=== PATIENT | female | born 1950 | race Caucasian/White ===

== ENCOUNTER 2020-05-07 14:48 | Inpatient (IN) | payer MEDICARE, MEDICAID ==
[~2020-05-07] VITALS: Ht 152.4 cm; Wt 58.1 kg
[2020-05-07 16:48] LABS: BASOPHILS % 0.4 % (0.0-2.0); EOSINOPHILS % 1.1 % (0.0-5.0); HEMOGLOBIN. 12.7 g/dL (12.0-16.0); LYMPHOCYTES % 15.4 % (20.0-50.0); MEAN CORPUSCULAR HEMOGLOBIN 32.3 pg (28.0-32.0); MEAN CORPUSCULAR VOLUME 96.5 fL (81.0-99.0); MEAN PLATELET VOLUME 8.4 fl (7.4-10.4); MONOCYTES % 6.7 % (2.0-8.0); NEUTROPHILS % 76.4 % (40.0-76.0); PLATELET 170 x1000/uL (130-400); RED BLOOD CELL COUNT 3.93 mill/uL (4.2-5.4)
[2020-05-07 16:57] LABS: PARTIAL THROMBOPLASTIN TIME 29.8 sec (23.4-31.0); PROTHROMBIN TIME 10.9 sec (9.6-11.0)
[2020-05-07 17:03] LABS: CHLORIDE 109 mEq/L (98-107)
[2020-05-07 17:06] LABS: BG BASE EXCESS -1.5 mmol/L (-2.0-2.0); BG CARBOXYHEMOGLOBIN 1.6 % (0.5-1.5); BG DEOXYHEMOGLOBIN 4.1 % (0.0-5.0); BG FRACTION INSPIRED OXYGEN 21; BG HCO3 ACT 22.8 mmol/L (22.0-26.0); BG METHEMOGLOBIN 0.1 % (0.0-1.5); BG OXYGEN SATURATION 95.8 % (92.0-98.5); BG OXYHEMOGLOBIN 94.2 % (94.0-97.0); BG PCO2 37.3 mmHg (35.0-45.0); BG PH 7.405 (7.350-7.450); BG PO2 82.7 mmHg (75.0-100.0); BG SAMPLE SITE RIGHT RADIAL; BG TOTAL HEMOGLOBIN 12.8 g/dL (12.0-18.0); BG VENT MODE ROOM AIR
[2020-05-07 17:07] LABS: ETHANOL BLOOD < 10 mg/dL
[2020-05-07 17:12] LABS: CREATINE KINASE 54 IU/L (26-192)
[2020-05-07] MEDS ORDERED: NITROGLYCERIN OINT 1GM/INCH UDPKT TD ONE (17:30)
[2020-05-07] MEDS ORDERED: FUROSEMIDE 40MG/4ML VIAL IVP ONE (17:30)
[2020-05-07] MEDS ORDERED: ASPIRIN 81MG TABLET PO ONE (17:30)
[2020-05-07 18:40] LABS: CLARITY URINE CLEAR (CLEAR); COLOR URINE YELLOW (YELLOW); KETONES URINE NEGATIVE (NEGATIVE); LEUKOCYTE ESTERASE URINE 1+ (NEGATIVE); NITRITE URINE NEGATIVE (NEGATIVE); OCCULT BLOOD URINE NEGATIVE (NEGATIVE); PROTEIN URINE NEGATIVE (NEGATIVE); SPECIFIC GRAVITY URINE 1.016 (1.005-1.030); UROBILINOGEN URINE 0.2 E.U./dL (0.2-1.0)
[2020-05-07 19:04] LABS: *AMPHETAMINES SCREEN URINE NEGATIVE (NEGATIVE); *BARBITURATES SCREEN URINE NEGATIVE (NEGATIVE); *BENZODIAZEPINES SCREEN URINE NEGATIVE (NEGATIVE)
[2020-05-07 19:05] LABS: *COCAINE SCREEN URINE NEGATIVE (NEGATIVE); CANNABINOID URINE SCREEN NEGATIVE (NEGATIVE); METHADONE URINE SCREEN NEGATIVE (NEGATIVE); OPIATES URINE SCREEN NEGATIVE (NEGATIVE); PHENCYCLIDINE URINE SCREEN NEGATIVE (NEGATIVE)
[2020-05-07] MEDS ORDERED: ACETAMINOPHEN 325MG TABLET PO PRN (21:45)
[2020-05-07] MEDS: AMLODIPINE 10MG TABLET PO SCH (21:45)
[2020-05-07] MEDS ORDERED: DEXTROSE 50% WATER 50ML SYRINGE IV PRN (21:45)
[2020-05-07] MEDS ORDERED: ONDANSETRON HCL 4MG/2ML INJ IV PRN (21:45)
[2020-05-07] MEDS: INSULIN LISPRO 100 UNITS/ML SUBCUT SCH (22:00)
[2020-05-07] MEDS: BLOOD SUGAR DIAGNOSTIC STRIP TEST SCH (22:49)
[2020-05-08 05:30] VITALS: BP 131/40
[2020-05-08] MEDS: BLOOD SUGAR DIAGNOSTIC STRIP TEST SCH ×4 (05:38→21:00)
[2020-05-08] MEDS: INSULIN LISPRO 100 UNITS/ML SUBCUT SCH ×4 (05:38→21:00)
[2020-05-08 07:57] VITALS: BP 122/36
[2020-05-08] MEDS: AMLODIPINE 10MG TABLET PO SCH (08:58)
[2020-05-08 11:44] VITALS: BP 132/36
[2020-05-08] MEDS ORDERED: INSULIN GLARGINE UD 100 UNITS/ML SYR SUBCUT SCH (14:00)
[2020-05-08 15:26] VITALS: BP 145/50
[2020-05-08 16:11] LABS: BASOPHILS % 0.8 % (0.0-2.0); EOSINOPHILS % 2.8 % (0.0-5.0); HEMATOCRIT. 39.3 % (36.0-48.0); HEMOGLOBIN. 13.4 g/dL (12.0-16.0); LYMPHOCYTES % 35.7 % (20.0-50.0); MEAN CORPUSCULAR HEMOGLOBIN 32.6 pg (28.0-32.0); MEAN CORPUSCULAR VOLUME 95.8 fL (81.0-99.0); MEAN PLATELET VOLUME 8.5 fl (7.4-10.4); MONOCYTES % 9.2 % (2.0-8.0); NEUTROPHILS % 51.5 % (40.0-76.0); PLATELET 180 x1000/uL (130-400); RED CELL DISTRIBUTION WIDTH 12.7 % (11.6-14.6)
[2020-05-08 16:16] LABS: CHLORIDE 105 mEq/L (98-107)
[2020-05-08] MEDS: FUROSEMIDE 40MG/4ML VIAL IVP SCH (18:33)
[2020-05-08 20:00] VITALS: BP 138/60
[2020-05-08] MEDS: INSULIN GLARGINE UD 100 UNITS/ML SYR SUBCUT SCH (22:00)
[2020-05-09] VITALS: BP 112/52
[2020-05-09 04:00] VITALS: BP 151/53
[2020-05-09] MEDS: BLOOD SUGAR DIAGNOSTIC STRIP TEST SCH ×2 (06:11→12:20)
[2020-05-09 08:00] VITALS: BP 162/60
[2020-05-09] MEDS: AMLODIPINE 10MG TABLET PO SCH (09:09)
[2020-05-09] MEDS: FUROSEMIDE 40MG/4ML VIAL IVP SCH (09:09)
[2020-05-09] MEDS: INSULIN LISPRO 100 UNITS/ML SUBCUT SCH (09:10)
[2020-05-09] MEDS: INSULIN GLARGINE UD 100 UNITS/ML SYR SUBCUT SCH (10:05)
[2020-05-09] MEDS ORDERED: ASPIRIN 81MG TABLET PO SCH (12:00)
[2020-05-09] MEDS ORDERED: AMLO10TA80 MT (13:12)
[2020-05-09 17:19] VITALS: BP 145/62
[2020-05-09] MEDS ORDERED: ATORVASTATIN CALCIUM 10MG TABLET PO SCH (21:00)
== END 2020-05-09 18:24 | disposition home or self-care (01) | DRG 73 ==
LOC: ER 15:32 → MICUSO 19:37 → 6WST 05-08 03:45
PROVIDERS: ADMIT Internal Medicine; ATTEND Internal Medicine
DX: G90.8 Other disorders of autonomic nervous system (principal); J18.9 Pneumonia, unspecified organism; I50.43 Acute on chronic combined systolic (congestive) and diastolic (congestive) heart failure; E44.1 Mild protein-calorie malnutrition; E11.65 Type 2 diabetes mellitus with hyperglycemia; I11.0 Hypertensive heart disease with heart failure; E87.8 Other disorders of electrolyte and fluid balance, not elsewhere classified; I27.20 Pulmonary hypertension, unspecified; I08.1 Rheumatic disorders of both mitral and tricuspid valves; Z82.49 Family history of ischemic heart disease and other diseases of the circulatory system; Z68.25 Body mass index [BMI] 25.0-25.9, adult; Z79.899 Other long term (current) drug therapy; E78.5 Hyperlipidemia, unspecified
CPT/HCPCS: 36415; 36600; 71045; 80048; 80053; 80061; 80305; 80320; 81003; 82375; 82550; 82805; 82962; 83036; 83605; 83880; 84443; 84484; 85025; 93005; 93306; 93880; 96374; 97161; 99285; J1815; J1940; G0480

== ENCOUNTER 2024-05-08 05:19 | Inpatient (IN) | payer MEDICARE, MEDICAID ==
[~2024-05-08] VITALS: Ht 157.5 cm; Wt 52.3 kg
[~2024-05-08 05:19] MED LIST: AMLO10TA80 MT
[2024-05-08 06:14] LABS: POTASSIUM 4.8 mEq/L (3.5-5.1)
[2024-05-08 06:15] LABS: BASOPHILS % 0.8 % (0.0-2.0); DIFFERENTIAL COMMENT 0; EOSINOPHILS % 1.7 % (0.0-5.0); HEMATOCRIT. 41.6 % (36.0-48.0); HEMOGLOBIN. 13.5 g/dL (12.0-16.0); LYMPHOCYTES % 11.4 % (20.0-50.0); MEAN CORPUSCULAR HEMOGLOBIN 33.9 pg (28.0-32.0); MEAN CORPUSCULAR HGB CONC 32.6 g/dL (31.0-37.0); MEAN CORPUSCULAR VOLUME 104.1 fL (81.0-99.0); MEAN PLATELET VOLUME 9.5 fl (7.4-10.4); MONOCYTES % 7.9 % (2.0-8.0); NEUTROPHILS % 78.2 % (40.0-76.0); PLATELET 162 x1000/uL (130-400); RED CELL DISTRIBUTION WIDTH 17.3 % (11.6-14.6); WHITE BLOOD COUNT 8.7 x1000/uL (4.5-11.0)
[2024-05-08 07:08] LABS: CLARITY URINE CLEAR (CLEAR); COLOR URINE YELLOW (YELLOW); GLUCOSE URINE 2+ (NEGATIVE); PROTEIN URINE TRACE (NEGATIVE); SPECIFIC GRAVITY URINE 1.025 (1.005-1.030)
[2024-05-08 07:09] LABS: KETONES URINE TRACE (NEGATIVE); LEUKOCYTE ESTERASE URINE NEGATIVE (NEGATIVE); NITRITE URINE NEGATIVE (NEGATIVE); OCCULT BLOOD URINE NEGATIVE (NEGATIVE); UROBILINOGEN URINE 0.2 E.U./dL (0.2-1.0)
[2024-05-08 07:18] LABS: BACTERIA URINE 2+; SQUAMOUS EPITHELIAL CELL URINE 2+ /lpf (RARE/1+); YEAST URINE NONE SEEN
[2024-05-08 07:27] LABS: CHLORIDE 110 mEq/L (98-107); POTASSIUM 4.6 mEq/L (3.5-5.1); SODIUM 139 mEq/L (136-145)
[2024-05-08 07:28] LABS: CALCIUM 8.7 mg/dL (8.7-10.4); CARBON DIOXIDE 23 mEq/L (21-32)
[2024-05-08 07:33] LABS: GLUCOSE 161 mg/dL (70-105); UREA NITROGEN BLOOD 36 mg/dL (9-23)
[2024-05-08 07:34] LABS: TROPONIN I HIGH SENSITIVITY 18 ng/L (3.0-34)
[2024-05-08] MEDS: ONDANSETRON HCL 4MG/2ML INJ IV STA (07:35)
[2024-05-08] MEDS: MORPHINE SULFATE 4 MG/ML INJ (FOR IV/IM USE) IV STA (07:36)
[2024-05-08] MEDS: SODIUM CHLORIDE 0.9% 1,000 ML IV ONE ×2 (07:36→12:39)
[2024-05-08 08:54] LABS: TROPONIN I HIGH SENSITIVITY 18 ng/L (3.0-34)
[2024-05-08] MEDS: METRONIDAZOLE 500 MG PREMIX 100 ML IV ONE (09:20)
[2024-05-08] MEDS: CEFTRIAXONE 1GM/50ML 50 ML IV ONE (09:47)
[2024-05-08] MEDS: AZITHROMYCIN 250 MG in DEXT 5% WATER 250 ML IV SCH (10:37)
[2024-05-08 11:11] VITALS: PULSE 123; RESP 20; O2SAT 100
[2024-05-08] MEDS: ONDANSETRON HCL 4MG/2ML INJ IV ONE (11:19)
[2024-05-08] MEDS ORDERED: ACETAMINOPHEN 650MG/20.3ML UDC NG PRN (12:15)
[2024-05-08] MEDS ORDERED: ACETAMINOPHEN 650MG SUPP PR PRN (12:15)
[2024-05-08 12:28] VITALS: PULSE 111; RESP 22; O2SAT 93
[2024-05-08] MEDS: PROPOFOL 10MG/ML 100ML 100 ML IV SCH (12:39)
[2024-05-08] MEDS: SODIUM CHLORIDE 0.9% (SEPSIS BOLUS) IV ONE (12:39)
[2024-05-08 13:52] LABS: HEMATOCRIT. 41.5 % (36.0-48.0); HEMOGLOBIN. 12.2 g/dL (12.0-16.0); MEAN CORPUSCULAR HEMOGLOBIN 33.3 pg (28.0-32.0); MEAN CORPUSCULAR HGB CONC 29.3 g/dL (31.0-37.0); MEAN CORPUSCULAR VOLUME 113.5 fL (81.0-99.0); MEAN PLATELET VOLUME 9.1 fl (7.4-10.4); PLATELET 112 x1000/uL (130-400); RED BLOOD CELL COUNT 3.65 mill/uL (4.2-5.4); WHITE BLOOD COUNT 19.4 x1000/uL (4.5-11.0)
[2024-05-08 13:59] LABS: CHLORIDE 114 mEq/L (98-107); POTASSIUM 4.6 mEq/L (3.5-5.1); SODIUM 137 mEq/L (136-145)
[2024-05-08 14:00] LABS: CALCIUM 7.8 mg/dL (8.7-10.4); CARBON DIOXIDE 16 mEq/L (21-32)
[2024-05-08 14:05] LABS: GLUCOSE 244 mg/dL (70-105); UREA NITROGEN BLOOD 29 mg/dL (9-23)
[2024-05-08 14:06] LABS: DIFFERENTIAL COMMENT 1
[2024-05-08 14:07] LABS: PHOSPHORUS 4.4 mg/dL (2.5-4.9)
[2024-05-08 14:17] VITALS: PULSE 118; RESP 20; O2SAT 99
[2024-05-08] MEDS ORDERED: DEXTROSE 50% WATER 50ML SYRINGE IV PRN (14:45)
[2024-05-08 15:15] LABS: ANISOCYTOSIS 1+; PLATELET ESTIMATE SLIGHTLY DECREASED
[2024-05-08 15:51] LABS: BG BASE EXCESS -6.6 mmol/L (-2.0-3.0); BG CARBOXYHEMOGLOBIN 0.9 % (0.5-1.5); BG DEOXYHEMOGLOBIN 1.2 % (0.0-5.0); BG FRACTION INSPIRED OXYGEN 100; BG HCO3 ACT 17.1 mmol/L (21.0-28.0); BG METHEMOGLOBIN 0.3 % (0.5-1.5); BG OXYGEN SATURATION 98.8 % (94.0-98.0); BG OXYHEMOGLOBIN 97.6 % (94.0-98.0); BG PCO2 29.2 mmHg (32.0-45.0); BG PH 7.385 (7.350-7.450); BG PO2 127.6 mmHg (83.0-108.0); BG SAMPLE SITE RIGHT RADIAL; BG TOTAL HEMOGLOBIN 13.8 g/dL (12.0-16.0); BG VENT MODE VENT - PRVC
[2024-05-08] MEDS: VANCOMYCIN 1G PREMIX 200 ML IV NR (16:53)
[2024-05-08] MEDS: NOREPINEPHRINE 8MG/250ML PMX 250 ML IV PRN (18:17)
[2024-05-08] MEDS: BLOOD SUGAR DIAGNOSTIC STRIP TEST SCH (18:52)
[2024-05-08] MEDS: INSULIN LISPRO 100 UNITS/ML SUBCUT SCH (18:56)
[2024-05-08 19:22] VITALS: PULSE 114; O2SAT 100
[2024-05-08 19:55] VITALS: PULSE 92; RESP 23; O2SAT 98
[2024-05-09] VITALS (58 sets, daily range): BP systolic 106–164; BP diastolic 42–67; PULSE 62–86; RESP 16–23; TEMP 37; O2SAT 97–100
[2024-05-09] MEDS: VANCOMYCIN 500MG/100ML IV SCH (05:24)
[2024-05-09] MEDS: IPRATROPIUM/ALBUTEROL 0.5-3(2.5)MG/3ML NEB HHN SCH (07:52)
[2024-05-09 08:19] LABS: BG BASE EXCESS -8.3 mmol/L (-2.0-3.0); BG CARBOXYHEMOGLOBIN 0.6 % (0.5-1.5); BG DEOXYHEMOGLOBIN 1.5 % (0.0-5.0); BG FRACTION INSPIRED OXYGEN 70; BG HCO3 ACT 14.6 mmol/L (21.0-28.0); BG METHEMOGLOBIN 0.2 % (0.5-1.5); BG OXYGEN SATURATION 98.5 % (94.0-98.0); BG OXYHEMOGLOBIN 97.7 % (94.0-98.0); BG PCO2 24.4 mmHg (32.0-45.0); BG PH 7.395 (7.350-7.450); BG PO2 117.1 mmHg (83.0-108.0); BG SAMPLE SITE LEFT RADIAL; BG TOTAL HEMOGLOBIN 14.2 g/dL (12.0-16.0); BG TOTAL RESPIRATORY RATE 20 b/min
[2024-05-09 08:21] LABS: BASOPHILS % 0.5 % (0.0-2.0); DIFFERENTIAL COMMENT 0; EOSINOPHILS % 0.8 % (0.0-5.0); HEMATOCRIT. 41.7 % (36.0-48.0); HEMOGLOBIN. 13.4 g/dL (12.0-16.0); LYMPHOCYTES % 11.5 % (20.0-50.0); MEAN CORPUSCULAR HEMOGLOBIN 33.4 pg (28.0-32.0); MEAN CORPUSCULAR HGB CONC 32.1 g/dL (31.0-37.0); MEAN CORPUSCULAR VOLUME 103.8 fL (81.0-99.0); MEAN PLATELET VOLUME 9.5 fl (7.4-10.4); MONOCYTES % 9.9 % (2.0-8.0); NEUTROPHILS % 77.3 % (40.0-76.0); PLATELET 154 x1000/uL (130-400); RED BLOOD CELL COUNT 4.01 mill/uL (4.2-5.4); RED CELL DISTRIBUTION WIDTH 17.1 % (11.6-14.6); WHITE BLOOD COUNT 11.3 x1000/uL (4.5-11.0)
[2024-05-09 08:28] LABS: CHLORIDE 114 mEq/L (98-107); POTASSIUM 4.1 mEq/L (3.5-5.1); SODIUM 140 mEq/L (136-145)
[2024-05-09 08:29] LABS: CALCIUM 8.1 mg/dL (8.7-10.4); CARBON DIOXIDE 19 mEq/L (21-32)
[2024-05-09 08:34] LABS: GLUCOSE 179 mg/dL (70-105); TRIGLYCERIDE 109 mg/dL (0-150); UREA NITROGEN BLOOD 34 mg/dL (9-23)
[2024-05-09 08:35] LABS: LDL CHOLESTEROL 43 mg/dL (5-100)
[2024-05-09 08:36] LABS: ALANINE AMINOTRANSFERASE 57 IU/L (10-49); ALBUMIN 2.9 g/dL (3.2-4.8); ASPARTATE AMINOTRANSFERASE 48 IU/L (<34); BILIRUBIN DIRECT 0.3 mg/dL (<=3.0); BILIRUBIN TOTAL 0.7 mg/dL (0.1-1.0); CHOLESTEROL 88 mg/dL (<200); HDL CHOLESTEROL 26 mg/dL (>65); PROTEIN TOTAL 5.6 g/dL (6.0-8.3)
[2024-05-09] MEDS ORDERED: CEFEPIME 1GM IN DEXT 5% 50ML IV SCH (08:45)
[2024-05-09] MEDS ORDERED: CLONIDINE 0.1MG TABLET PO PRN (09:15)
[2024-05-09] MEDS ORDERED: DOCUSATE SODIUM 100MG CAPSULE PO PRN (09:15)
[2024-05-09] MEDS: PANTOPRAZOLE SODIUM 40 MG/VIAL IV SCH (09:17)
[2024-05-09] MEDS: ENOXAPARIN 60MG/0.6ML SYR SUBCUT NR (09:17)
[2024-05-09] MEDS ORDERED: CEFEPIME 1GM PREMIX 50ML IV SCH (10:00)
[2024-05-09 10:01] LABS: ALBUMIN 3.1 g/dL (3.2-4.8)
[2024-05-09 10:04] LABS: THYROID STIMULATING HORMONE 1.8 uIU/mL (0.55-4.78)
[2024-05-09 10:11] LABS: INR 1.1; PROTHROMBIN TIME 12.1 sec (9.6-11.0)
[2024-05-09 11:50] LABS: HEPATITIS B SURFACE ANTIGEN NEGATIVE (Negative)
[2024-05-09 12:10] LABS: HEPATITIS A AB IGM NEGATIVE (Negative)
[2024-05-09 12:11] LABS: HEPATITIS B CORE AB IGM NEGATIVE (Negative); HEPATITIS C AB NON REACTIVE (Neg) (Negative)
[2024-05-09] MEDS: CEFEPIME 2GM/50ML DUPLEX 50 ML IV SCH ×2 (15:12→22:27)
[2024-05-09] MEDS ORDERED: VANCOMYCIN 500MG/100ML IV SCH ×2 (21:00)
[2024-05-09] MEDS: ENOXAPARIN 60MG/0.6ML SYR SUBCUT SCH (22:29)
[2024-05-10] VITALS (109 sets, daily range): BP systolic 86–145; BP diastolic 38–70; PULSE 62–117; RESP 11–27; TEMP 98.1–100; O2SAT 94–100
[2024-05-10] MEDS: PROPOFOL 10 MG/ML 100 ML IV PRN (02:41)
[2024-05-10 05:02] LABS: BASOPHILS % 0.5 % (0.0-2.0); DIFFERENTIAL COMMENT 0; HEMATOCRIT. 40.5 % (36.0-48.0); HEMOGLOBIN. 12.7 g/dL (12.0-16.0); LYMPHOCYTES % 9.4 % (20.0-50.0); MEAN CORPUSCULAR HEMOGLOBIN 33.6 pg (28.0-32.0); MEAN CORPUSCULAR HGB CONC 31.5 g/dL (31.0-37.0); MEAN CORPUSCULAR VOLUME 106.6 fL (81.0-99.0); MONOCYTES % 10.8 % (2.0-8.0); NEUTROPHILS % 77.3 % (40.0-76.0); PLATELET 124 x1000/uL (130-400); RED CELL DISTRIBUTION WIDTH 19.3 % (11.6-14.6); WHITE BLOOD COUNT 10.3 x1000/uL (4.5-11.0)
[2024-05-10 05:03] LABS: CHLORIDE 114 mEq/L (98-107); POTASSIUM 3.4 mEq/L (3.5-5.1); SODIUM 143 mEq/L (136-145)
[2024-05-10 05:04] LABS: CALCIUM 8.4 mg/dL (8.7-10.4); CARBON DIOXIDE 19 mEq/L (21-32)
[2024-05-10 05:09] LABS: CREATININE 0.8 mg/dL (0.6-1.0); GLUCOSE 145 mg/dL (70-105); UREA NITROGEN BLOOD 20 mg/dL (9-23)
[2024-05-10 05:11] LABS: ALANINE AMINOTRANSFERASE 44 IU/L (10-49); ALBUMIN 2.9 g/dL (3.2-4.8); ASPARTATE AMINOTRANSFERASE 33 IU/L (<34); BILIRUBIN TOTAL 0.7 mg/dL (0.1-1.0); PROTEIN TOTAL 5.3 g/dL (6.0-8.3)
[2024-05-10] MEDS: POTASSIUM CHLORIDE 20MEQ/PACKET PO NR (05:21)
[2024-05-10] MEDS: NOREPINEPHRINE 8MG/250ML PMX 250 ML IV PRN (10:53)
[2024-05-10] MEDS: ACETAMINOPHEN 325MG TABLET PO PRN (12:46)
[2024-05-10 14:17] LABS: *AMPHETAMINES SCREEN URINE NEGATIVE (NEGATIVE); *BARBITURATES SCREEN URINE NEGATIVE (NEGATIVE); *BENZODIAZEPINES SCREEN URINE NEGATIVE (NEGATIVE); *COCAINE SCREEN URINE NEGATIVE (NEGATIVE); CANNABINOID URINE SCREEN NEGATIVE (NEGATIVE); ECSTASY MDMA SCREEN URINE NEGATIVE (NEGATIVE); METHADONE URINE SCREEN NEGATIVE (NEGATIVE); OPIATES URINE SCREEN NEGATIVE (NEGATIVE); PHENCYCLIDINE URINE SCREEN NEGATIVE (NEGATIVE)
[2024-05-10 15:22] LABS: BG BASE EXCESS -7.2 mmol/L (-2.0-3.0); BG DEOXYHEMOGLOBIN 4.8 % (0.0-5.0); BG FRACTION INSPIRED OXYGEN 40; BG HCO3 ACT 16.4 mmol/L (21.0-28.0); BG METHEMOGLOBIN 0.2 % (0.5-1.5); BG OXYGEN SATURATION 95.1 % (94.0-98.0); BG PCO2 27.9 mmHg (32.0-45.0); BG PH 7.386 (7.350-7.450); BG PO2 77.6 mmHg (83.0-108.0); BG SAMPLE SITE RIGHT RADIAL; BG TOTAL HEMOGLOBIN 12.8 g/dL (12.0-16.0); BG VENT MODE VENT - AC
[2024-05-11] VITALS (107 sets, daily range): BP systolic 90–152; BP diastolic 40–129; PULSE 70–163; RESP 11–41; TEMP 98.1–101; O2SAT 90–100
[2024-05-11 05:17] LABS: BASOPHILS % 0.8 % (0.0-2.0); DIFFERENTIAL COMMENT 0; EOSINOPHILS % 2.7 % (0.0-5.0); HEMATOCRIT. 37.4 % (36.0-48.0); MEAN CORPUSCULAR HEMOGLOBIN 33.2 pg (28.0-32.0); MEAN CORPUSCULAR HGB CONC 32.1 g/dL (31.0-37.0); MEAN CORPUSCULAR VOLUME 103.2 fL (81.0-99.0); MEAN PLATELET VOLUME 9.2 fl (7.4-10.4); MONOCYTES % 11.1 % (2.0-8.0); NEUTROPHILS % 77.4 % (40.0-76.0); PLATELET 109 x1000/uL (130-400); RED BLOOD CELL COUNT 3.62 mill/uL (4.2-5.4); RED CELL DISTRIBUTION WIDTH 17.8 % (11.6-14.6); WHITE BLOOD COUNT 8.2 x1000/uL (4.5-11.0)
[2024-05-11 05:21] LABS: PROTHROMBIN TIME 11.6 sec (9.6-11.0)
[2024-05-11 05:32] LABS: CHLORIDE 116 mEq/L (98-107); POTASSIUM 3.5 mEq/L (3.5-5.1); SODIUM 145 mEq/L (136-145)
[2024-05-11 05:33] LABS: CARBON DIOXIDE 20 mEq/L (21-32)
[2024-05-11 05:38] LABS: CREATININE 0.6 mg/dL (0.6-1.0); GLUCOSE 124 mg/dL (70-105)
[2024-05-11 05:39] LABS: UREA NITROGEN BLOOD 14 mg/dL (9-23)
[2024-05-11 05:40] LABS: ALANINE AMINOTRANSFERASE 31 IU/L (10-49); ALBUMIN 2.8 g/dL (3.2-4.8); ASPARTATE AMINOTRANSFERASE 22 IU/L (<34); BILIRUBIN DIRECT 0.2 mg/dL (<=3.0)
[2024-05-11 05:41] LABS: BILIRUBIN TOTAL 0.5 mg/dL (0.1-1.0); PHOSPHORUS 3.2 mg/dL (2.5-4.9); PROTEIN TOTAL 5.4 g/dL (6.0-8.3)
[2024-05-11] MEDS: PROPOFOL 10MG/ML 100ML 100 ML IV PRN (07:15)
[2024-05-11] MEDS: METOPROLOL TARTRATE 5MG/5ML VIAL IV SCH ×2 (12:18→13:39)
[2024-05-11] MEDS: FUROSEMIDE 40MG/4ML VIAL IVP SCH (12:21)
[2024-05-11] MEDS: KCL 20MEQ/100ML PREMIX 100 ML IV SCH (12:22)
[2024-05-11] MEDS: DILTIAZEM HCL 5MG/ML 5ML VIAL IV NR (13:48)
[2024-05-11] MEDS ORDERED: DILTIAZEM HCL 30MG TABLET PO STA (13:48)
[2024-05-11] MEDS ORDERED: DILTIAZEM HCL 5MG/ML 5ML VIAL IV ONE (14:00)
[2024-05-11] MEDS: LORAZEPAM 2MG/ML INJ IV SCH (14:04)
[2024-05-11] MEDS: SPIRONOLACTONE 12.5MG TABLET PO SCH (14:06)
[2024-05-11] MEDS: DILTIAZEM HCL 30MG TABLET PO NR (14:07)
[2024-05-11] MEDS: DILTIAZEM HCL 125 MG in DEXT 5% WATER 100 ML IV PRN (14:53)
[2024-05-11] MEDS: DILTIAZEM HCL 30MG TABLET PO SCH (17:22)
[2024-05-11] MEDS: ACETAMINOPHEN 325MG TABLET PO PRN (18:31)
[2024-05-11] MEDS: TAMSULOSIN HCL 0.4MG SR CAPSULE PO SCH (19:31)
[2024-05-12] VITALS (94 sets, daily range): BP systolic 95–143; BP diastolic 41–128; PULSE 70–126; RESP 14–27; TEMP 36.5–36.8; O2SAT 91–100
[2024-05-12 06:08] LABS: HEMATOCRIT. 36.1 % (36.0-48.0); HEMOGLOBIN. 11.8 g/dL (12.0-16.0); MEAN CORPUSCULAR HEMOGLOBIN 33.7 pg (28.0-32.0); MEAN CORPUSCULAR HGB CONC 32.7 g/dL (31.0-37.0); MEAN CORPUSCULAR VOLUME 103.1 fL (81.0-99.0); MEAN PLATELET VOLUME 9.4 fl (7.4-10.4); PLATELET 104 x1000/uL (130-400); RED CELL DISTRIBUTION WIDTH 17.5 % (11.6-14.6); WHITE BLOOD COUNT 8.4 x1000/uL (4.5-11.0)
[2024-05-12 06:24] LABS: CALCIUM 8.4 mg/dL (8.7-10.4); CARBON DIOXIDE 21 mEq/L (21-32); CHLORIDE 110 mEq/L (98-107); POTASSIUM 3.9 mEq/L (3.5-5.1); SODIUM 139 mEq/L (136-145)
[2024-05-12 06:29] LABS: CREATININE 0.6 mg/dL (0.6-1.0); GLUCOSE 174 mg/dL (70-105)
[2024-05-12 06:30] LABS: TRIGLYCERIDE 102 mg/dL (0-150); UREA NITROGEN BLOOD 15 mg/dL (9-23)
[2024-05-12 06:32] LABS: PHOSPHORUS 2.8 mg/dL (2.5-4.9)
[2024-05-12 06:38] LABS: DIFFERENTIAL COMMENT 1
[2024-05-12] MEDS: FUROSEMIDE 40MG/4ML VIAL IVP SCH ×2 (09:02→17:09)
[2024-05-12 09:12] LABS: ANISOCYTOSIS 1+; PLATELET ESTIMATE SLIGHTLY DECREASED
[2024-05-12] MEDS: DOCUSATE SODIUM SUGAR FREE 100MG/10ML UDC NG PRN (09:32)
[2024-05-12 10:29] LABS: BG BASE EXCESS -1.1 mmol/L (-2.0-3.0); BG CARBOXYHEMOGLOBIN 1.1 % (0.5-1.5); BG DEOXYHEMOGLOBIN 7.3 % (0.0-5.0); BG FRACTION INSPIRED OXYGEN 45; BG HCO3 ACT 21.4 mmol/L (21.0-28.0); BG METHEMOGLOBIN 0.3 % (0.5-1.5); BG OXYGEN SATURATION 92.6 % (94.0-98.0); BG OXYHEMOGLOBIN 91.3 % (94.0-98.0); BG PCO2 29.1 mmHg (32.0-45.0); BG PH 7.484 (7.350-7.450); BG SAMPLE SITE RIGHT RADIAL; BG TOTAL HEMOGLOBIN 12.1 g/dL (12.0-16.0); BG VENT MODE VENT - CPAP
[2024-05-12] MEDS ORDERED: ASPIRIN 81MG EC TABLET PO SCH (10:30)
[2024-05-12] MEDS: SPIRONOLACTONE 25 MG/5 ML ORAL.SUSP NG SCH (11:29)
[2024-05-12] MEDS: ASPIRIN 81MG TABLET PO SCH (11:35)
[2024-05-12] MEDS: DILTIAZEM HCL 60MG TABLET PO SCH (11:35)
[2024-05-13] VITALS (69 sets, daily range): BP systolic 102–135; BP diastolic 43–90; PULSE 67–108; RESP 15–27; TEMP 36.6–37.2; O2SAT 90–97
[2024-05-13 05:53] LABS: HEMOGLOBIN 11.5 g/dL (12.0-16.0); MEAN CORPUSCULAR HEMOGLOBIN 33.5 pg (28.0-32.0); MEAN CORPUSCULAR VOLUME 101.6 fL (81.0-99.0); PLATELET 119 x1000/uL (130-400); RED BLOOD CELL COUNT 3.44 mill/uL (4.2-5.4); RED CELL DISTRIBUTION WIDTH 17.2 % (11.6-14.6); WHITE BLOOD COUNT 7.6 x1000/uL (4.5-11.0)
[2024-05-13 05:59] LABS: CARBON DIOXIDE 26 mEq/L (21-32); CHLORIDE 103 mEq/L (98-107); POTASSIUM 3.4 mEq/L (3.5-5.1); SODIUM 138 mEq/L (136-145)
[2024-05-13 06:00] LABS: CALCIUM 8.7 mg/dL (8.7-10.4)
[2024-05-13 06:04] LABS: CREATININE 0.6 mg/dL (0.6-1.0)
[2024-05-13 06:05] LABS: GLUCOSE 163 mg/dL (70-105); UREA NITROGEN BLOOD 17 mg/dL (9-23)
[2024-05-13] MEDS ORDERED: SPIRONOLACTONE 25MG TABLET PO SCH (09:00)
[2024-05-13] MEDS: POTASSIUM CHLORIDE 20 MEQ in DEXT 5% WATER 90 ML IV NR (10:28)
[2024-05-13 10:39] LABS: BG BASE EXCESS 4.7 mmol/L (-2.0-3.0); BG CARBOXYHEMOGLOBIN 1.1 % (0.5-1.5); BG FRACTION INSPIRED OXYGEN 40; BG HCO3 ACT 27.4 mmol/L (21.0-28.0); BG METHEMOGLOBIN 0.3 % (0.5-1.5); BG OXYGEN SATURATION 95.9 % (94.0-98.0); BG OXYHEMOGLOBIN 94.6 % (94.0-98.0); BG PCO2 34.5 mmHg (32.0-45.0); BG PH 7.517 (7.350-7.450); BG PO2 72.1 mmHg (83.0-108.0); BG SAMPLE SITE RIGHT RADIAL; BG VENT MODE VENT - CPAP
[2024-05-13] MEDS: POTASSIUM CHLORIDE 20MEQ/PACKET PO NR ×2 (11:45→21:07)
[2024-05-13] MEDS: DOCUSATE SODIUM SUGAR FREE 100MG/10ML UDC NG PRN (17:08)
[2024-05-14] VITALS (43 sets, daily range): BP systolic 88–130; BP diastolic 38–92; PULSE 64–99; RESP 13–24; TEMP 36.2–36.6; O2SAT 88–97
[2024-05-14] MEDS: ONDANSETRON HCL 4MG/2ML INJ IV PRN (04:08)
[2024-05-14 09:42] LABS: CHLORIDE 101 mEq/L (98-107); POTASSIUM 3.9 mEq/L (3.5-5.1); SODIUM 138 mEq/L (136-145)
[2024-05-14 09:43] LABS: BASOPHILS % 0.8 % (0.0-2.0); CALCIUM 8.6 mg/dL (8.7-10.4); CARBON DIOXIDE 30 mEq/L (21-32); DIFFERENTIAL COMMENT 0; EOSINOPHILS % 2.8 % (0.0-5.0); HEMATOCRIT. 36.2 % (36.0-48.0); HEMOGLOBIN. 11.8 g/dL (12.0-16.0); LYMPHOCYTES % 9.2 % (20.0-50.0); MEAN CORPUSCULAR HEMOGLOBIN 33.6 pg (28.0-32.0); MEAN CORPUSCULAR HGB CONC 32.6 g/dL (31.0-37.0); MEAN CORPUSCULAR VOLUME 103.1 fL (81.0-99.0); MEAN PLATELET VOLUME 9.3 fl (7.4-10.4); MONOCYTES % 14.3 % (2.0-8.0); NEUTROPHILS % 72.9 % (40.0-76.0); PLATELET 143 x1000/uL (130-400); RED BLOOD CELL COUNT 3.51 mill/uL (4.2-5.4); WHITE BLOOD COUNT 7.1 x1000/uL (4.5-11.0)
[2024-05-14 09:44] LABS: PROTHROMBIN TIME 11.4 sec (9.6-11.0)
[2024-05-14 09:48] LABS: CREATININE 0.7 mg/dL (0.6-1.0); GLUCOSE 331 mg/dL (70-105); UREA NITROGEN BLOOD 18 mg/dL (9-23)
[2024-05-14] MEDS: PANTOPRAZOLE SODIUM 40 MG/VIAL IV SCH (11:43)
[2024-05-14 14:06] LABS: PTT 1:1 W/NORMAL PLASMA 29.7 sec
[2024-05-14 14:16] LABS: PTT RATIO 1:1 MIX/NORMAL 1.1 (0.8-1.1)
[2024-05-14] MEDS ORDERED: ENOXAPARIN 80MG/0.8ML SYR SUBCUT SCH (14:50)
[2024-05-14] MEDS: ENOXAPARIN 80MG/0.8ML SYR SUBCUT SCH (21:25)
[2024-05-15] VITALS: BP 120/53; PULSE 76; RESP 19; TEMP 36.5; O2SAT 96
[2024-05-15 04:00] VITALS: BP 121/42; PULSE 79; RESP 18; TEMP 36.4; O2SAT 94
[2024-05-15 08:00] VITALS: BP 146/58; PULSE 90; RESP 18; TEMP 35.8; O2SAT 95
[2024-05-15 08:12] LABS: CHLORIDE 100 mEq/L (98-107)
[2024-05-15 08:13] LABS: CARBON DIOXIDE 31 mEq/L (21-32); POTASSIUM 3.6 mEq/L (3.5-5.1); SODIUM 138 mEq/L (136-145)
[2024-05-15 08:14] LABS: CALCIUM 8.9 mg/dL (8.7-10.4)
[2024-05-15 08:18] LABS: CREATININE 0.7 mg/dL (0.6-1.0)
[2024-05-15 08:19] LABS: GLUCOSE 139 mg/dL (70-105); UREA NITROGEN BLOOD 18 mg/dL (9-23)
[2024-05-15 08:33] LABS: HEMOGLOBIN 11.9 g/dL (12.0-16.0); MEAN CORPUSCULAR HEMOGLOBIN 32.7 pg (28.0-32.0); MEAN CORPUSCULAR VOLUME 99.3 fL (81.0-99.0); PLATELET 163 x1000/uL (130-400); RED BLOOD CELL COUNT 3.62 mill/uL (4.2-5.4); RED CELL DISTRIBUTION WIDTH 16.2 % (11.6-14.6); WHITE BLOOD COUNT 7.7 x1000/uL (4.5-11.0)
[2024-05-15 12:00] VITALS: BP 105/50; PULSE 80; RESP 18; TEMP 40.6; O2SAT 96
[2024-05-15] MEDS: SPIRONOLACTONE 25MG TABLET PO SCH (13:35)
[2024-05-15] MEDS: FUROSEMIDE 100MG/10ML VIAL IVP NR (13:36)
[2024-05-15 16:00] VITALS: BP 110/49; PULSE 68; RESP 18; TEMP 36.3; O2SAT 98
[2024-05-15 20:00] VITALS: BP 122/57; PULSE 63; RESP 18; TEMP 36.4; O2SAT 96
[2024-05-16] VITALS: BP 123/44; PULSE 73; RESP 19; TEMP 36.6; O2SAT 93
[2024-05-16 04:00] VITALS: BP 121/60; PULSE 68; RESP 18; TEMP 36.2; O2SAT 97
[2024-05-16 06:17] LABS: CALCIUM 9.6 mg/dL (8.7-10.4); CARBON DIOXIDE 31 mEq/L (21-32); CHLORIDE 98 mEq/L (98-107); POTASSIUM 3.7 mEq/L (3.5-5.1); SODIUM 138 mEq/L (136-145)
[2024-05-16 06:23] LABS: CREATININE 0.7 mg/dL (0.6-1.0); GLUCOSE 144 mg/dL (70-105); UREA NITROGEN BLOOD 17 mg/dL (9-23)
[2024-05-16 08:00] VITALS: BP 132/49; PULSE 57; RESP 18; TEMP 36.2; O2SAT 98
[2024-05-16 08:07] LABS: HEMATOCRIT 37.3 % (36.0-48.0); HEMOGLOBIN 12.5 g/dL (12.0-16.0); MEAN CORPUSCULAR HEMOGLOBIN 33.8 pg (28.0-32.0); MEAN CORPUSCULAR HGB CONC 33.5 g/dL (31.0-37.0); MEAN CORPUSCULAR VOLUME 101.1 fL (81.0-99.0); PLATELET 209 x1000/uL (130-400); RED BLOOD CELL COUNT 3.69 mill/uL (4.2-5.4); RED CELL DISTRIBUTION WIDTH 15.9 % (11.6-14.6); WHITE BLOOD COUNT 8.4 x1000/uL (4.5-11.0)
[2024-05-16 11:24] LABS: BG BASE EXCESS 4.9 mmol/L (-2.0-3.0); BG CARBOXYHEMOGLOBIN 1.3 % (0.5-1.5); BG DEOXYHEMOGLOBIN 7.6 % (0.0-5.0); BG FRACTION INSPIRED OXYGEN 32; BG METHEMOGLOBIN 0.3 % (0.5-1.5); BG OXYGEN SATURATION 92.3 % (94.0-98.0); BG OXYHEMOGLOBIN 90.8 % (94.0-98.0); BG PCO2 36.2 mmHg (32.0-45.0); BG PH 7.506 (7.350-7.450); BG SAMPLE SITE RIGHT RADIAL; BG TOTAL HEMOGLOBIN 13.2 g/dL (12.0-16.0); BG VENT MODE NASAL CANNULA
[2024-05-16 12:00] VITALS: BP 138/59; PULSE 96; RESP 18; TEMP 36.3; O2SAT 96
[2024-05-16] MEDS ORDERED: REGADENOSON 0.4 MG/5 ML IV NR (12:00)
[2024-05-16 13:25] LABS: BG BASE EXCESS 7.4 mmol/L (-2.0-3.0); BG CARBOXYHEMOGLOBIN 1.5 % (0.5-1.5); BG DEOXYHEMOGLOBIN 12.8 % (0.0-5.0); BG FRACTION INSPIRED OXYGEN 21; BG METHEMOGLOBIN 0.3 % (0.5-1.5); BG OXYHEMOGLOBIN 85.4 % (94.0-98.0); BG PCO2 35.6 mmHg (32.0-45.0); BG PH 7.544 (7.350-7.450); BG PO2 49.9 mmHg (83.0-108.0); BG SAMPLE SITE RIGHT RADIAL; BG TOTAL HEMOGLOBIN 13.6 g/dL (12.0-16.0); BG VENT MODE ROOM AIR
[2024-05-16 16:00] VITALS: BP 144/57; PULSE 69; RESP 18; TEMP 35.6; O2SAT 98
[2024-05-16 20:00] VITALS: BP 114/52; PULSE 88; RESP 19; TEMP 37.7; O2SAT 95
[2024-05-16] MEDS: ENOXAPARIN 60MG/0.6ML SYR SUBCUT SCH (20:31)
[2024-05-17] VITALS (7 sets, daily range): BP systolic 107–130; BP diastolic 35–70; PULSE 69–89; RESP 15–20; TEMP 36.3–37.6; O2SAT 94–100
[2024-05-17 07:28] LABS: EOSINOPHILS % 2.7 % (0.0-5.0); HEMATOCRIT. 38.9 % (36.0-48.0); LYMPHOCYTES % 13.7 % (20.0-50.0); MEAN CORPUSCULAR HEMOGLOBIN 33.3 pg (28.0-32.0); MEAN CORPUSCULAR HGB CONC 33.3 g/dL (31.0-37.0); MEAN CORPUSCULAR VOLUME 99.7 fL (81.0-99.0); MEAN PLATELET VOLUME 9.2 fl (7.4-10.4); MONOCYTES % 12.8 % (2.0-8.0); NEUTROPHILS % 69.8 % (40.0-76.0); PLATELET 237 x1000/uL (130-400); WHITE BLOOD COUNT 8.4 x1000/uL (4.5-11.0)
[2024-05-17 07:33] LABS: CARBON DIOXIDE 30 mEq/L (21-32); CHLORIDE 96 mEq/L (98-107); POTASSIUM 3.9 mEq/L (3.5-5.1); SODIUM 136 mEq/L (136-145)
[2024-05-17 07:34] LABS: CALCIUM 9.9 mg/dL (8.7-10.4)
[2024-05-17 07:39] LABS: CREATININE 0.7 mg/dL (0.6-1.0); GLUCOSE 162 mg/dL (70-105); UREA NITROGEN BLOOD 24 mg/dL (9-23)
[2024-05-17] MEDS ORDERED: CAFFEINE CITRATE 20MG/ML 3ML VIAL IV ONE (11:01)
[2024-05-17] MEDS ORDERED: REGADENOSON 0.4 MG/5 ML IV ONE (11:01)
[2024-05-18] VITALS: BP 138/48; PULSE 71; RESP 20; TEMP 36.8; O2SAT 98
[2024-05-18 04:00] VITALS: BP 112/55; PULSE 72; RESP 19; TEMP 36.6; O2SAT 99
[2024-05-18 08:00] VITALS: BP 124/57; PULSE 83; RESP 19; TEMP 36.2; O2SAT 95
[2024-05-18 11:41] LABS: BG BASE EXCESS 6.7 mmol/L (-2.0-3.0); BG CARBOXYHEMOGLOBIN 1.1 % (0.5-1.5); BG DEOXYHEMOGLOBIN 7.7 % (0.0-5.0); BG FRACTION INSPIRED OXYGEN 21; BG METHEMOGLOBIN 0.3 % (0.5-1.5); BG OXYGEN SATURATION 92.2 % (94.0-98.0); BG OXYHEMOGLOBIN 90.9 % (94.0-98.0); BG PCO2 38.1 mmHg (32.0-45.0); BG PH 7.514 (7.350-7.450); BG PO2 60.8 mmHg (83.0-108.0); BG SAMPLE SITE RIGHT BRACHIAL; BG TOTAL HEMOGLOBIN 14.2 g/dL (12.0-16.0); BG VENT MODE ROOM AIR
[2024-05-18 12:00] VITALS: BP 121/43; PULSE 75; RESP 19; TEMP 36.3; O2SAT 100
[2024-05-18] MEDS: FUROSEMIDE 100MG/10ML VIAL IVP SCH (12:44)
[2024-05-18 13:48] LABS: CHLORIDE 95 mEq/L (98-107); POTASSIUM 4.1 mEq/L (3.5-5.1); SODIUM 133 mEq/L (136-145)
[2024-05-18 13:49] LABS: CARBON DIOXIDE 30 mEq/L (21-32)
[2024-05-18 13:50] LABS: CALCIUM 9.6 mg/dL (8.7-10.4)
[2024-05-18 13:54] LABS: CREATININE 0.7 mg/dL (0.6-1.0); GLUCOSE 284 mg/dL (70-105); UREA NITROGEN BLOOD 27 mg/dL (9-23)
[2024-05-18 14:04] LABS: HEMATOCRIT 40.2 % (36.0-48.0); HEMOGLOBIN 13.4 g/dL (12.0-16.0); MEAN CORPUSCULAR HEMOGLOBIN 33.6 pg (28.0-32.0); MEAN CORPUSCULAR HGB CONC 33.2 g/dL (31.0-37.0); MEAN CORPUSCULAR VOLUME 101.2 fL (81.0-99.0); PLATELET 285 x1000/uL (130-400); RED BLOOD CELL COUNT 3.97 mill/uL (4.2-5.4); RED CELL DISTRIBUTION WIDTH 15.9 % (11.6-14.6); WHITE BLOOD COUNT 6.8 x1000/uL (4.5-11.0)
[2024-05-18 16:00] VITALS: BP 112/52; PULSE 76; RESP 17; TEMP 36.3; O2SAT 97
[2024-05-18 20:00] VITALS: BP 105/54; PULSE 71; RESP 18; TEMP 36.6; O2SAT 96
[2024-05-18] MEDS: APIXABAN 5 MG TABLET PO SCH (21:55)
[2024-05-19] VITALS (7 sets, daily range): BP systolic 102–132; BP diastolic 35–72; PULSE 56–96; RESP 18–20; TEMP 36.1–36.6; O2SAT 96–99
[2024-05-19 08:18] LABS: HEMATOCRIT 40.5 % (36.0-48.0); HEMOGLOBIN 13.4 g/dL (12.0-16.0); MEAN CORPUSCULAR HEMOGLOBIN 32.6 pg (28.0-32.0); MEAN CORPUSCULAR HGB CONC 33.1 g/dL (31.0-37.0); MEAN CORPUSCULAR VOLUME 98.6 fL (81.0-99.0); PLATELET 295 x1000/uL (130-400); RED BLOOD CELL COUNT 4.11 mill/uL (4.2-5.4); RED CELL DISTRIBUTION WIDTH 15.8 % (11.6-14.6); WHITE BLOOD COUNT 7.9 x1000/uL (4.5-11.0)
[2024-05-19 08:20] LABS: CHLORIDE 98 mEq/L (98-107); POTASSIUM 3.8 mEq/L (3.5-5.1); SODIUM 135 mEq/L (136-145)
[2024-05-19 08:21] LABS: CALCIUM 9.4 mg/dL (8.7-10.4); CARBON DIOXIDE 29 mEq/L (21-32)
[2024-05-19 08:26] LABS: CREATININE 0.6 mg/dL (0.6-1.0); GLUCOSE 161 mg/dL (70-105); UREA NITROGEN BLOOD 29 mg/dL (9-23)
[2024-05-19] MEDS: FUROSEMIDE 40MG TABLET PO SCH (09:56)
[2024-05-19] MEDS ORDERED: IPRATROPIUM/ALBUTEROL 0.5-3(2.5)MG/3ML NEB HHN PRN (13:00)
[2024-05-20] VITALS: BP 122/38; PULSE 67; RESP 20; TEMP 36.6; O2SAT 96
[2024-05-20 04:00] VITALS: BP 125/42; PULSE 70; RESP 20; TEMP 36.3; O2SAT 97
[2024-05-20 08:00] VITALS: BP 117/52; PULSE 82; RESP 18; TEMP 36.3; O2SAT 97
[2024-05-20] MEDS ORDERED: FURO40TA5 PO (10:56)
[2024-05-20] MEDS ORDERED: CARLA24 MT (10:56)
[2024-05-20] MEDS ORDERED: SPIR25TA PO (10:57)
[2024-05-20] MEDS ORDERED: ASPI-1160 PO (10:57)
[2024-05-20] MEDS ORDERED: APIX5TAB PO (10:57)
[2024-05-20 12:00] VITALS: BP 108/51; PULSE 87; RESP 18; TEMP 36.8; O2SAT 99
[2024-05-20 13:40] VITALS: BP 108/51; PULSE 87; TEMP 98.2; O2SAT 99
== END 2024-05-20 17:20 | disposition home or self-care (01) | DRG 870 ==
LOC: ER 05:50 → MICUSO 11:16 → EDBEDREQTM 11:21 → EDBEDREQSVC 11:21 → EDBEDREQ 11:21 → 6WST 05-14 14:55
PROVIDERS: ADMIT Internal Medicine; ATTEND Internal Medicine
PROC: 0BH17EZ Insertion of Endotracheal Airway into Trachea, Via Natural or Artificial Opening (ICD-10-PCS; principal; 2024-05-08)
PROC: 5A1955Z Respiratory Ventilation, Greater than 96 Consecutive Hours (ICD-10-PCS; 2024-05-08)
PROC: 5A12012 Performance of Cardiac Output, Single, Manual (ICD-10-PCS; 2024-05-08)
DX: A41.9 Sepsis, unspecified organism (principal); G92.8 Other toxic encephalopathy; J18.9 Pneumonia, unspecified organism; R65.21 Severe sepsis with septic shock; J96.01 Acute respiratory failure with hypoxia; I46.9 Cardiac arrest, cause unspecified; I50.41 Acute combined systolic (congestive) and diastolic (congestive) heart failure; R57.0 Cardiogenic shock; I42.9 Cardiomyopathy, unspecified; J91.8 Pleural effusion in other conditions classified elsewhere; Z20.822 Contact with and (suspected) exposure to COVID-19; I25.10 Atherosclerotic heart disease of native coronary artery without angina pectoris; I71.21 Aneurysm of the ascending aorta, without rupture; I11.0 Hypertensive heart disease with heart failure; E11.65 Type 2 diabetes mellitus with hyperglycemia; R74.01 Elevation of levels of liver transaminase levels; R82.71 Bacteriuria; D69.6 Thrombocytopenia, unspecified; E83.51 Hypocalcemia; E87.6 Hypokalemia; K52.9 Noninfective gastroenteritis and colitis, unspecified; E88.09 Other disorders of plasma-protein metabolism, not elsewhere classified; R33.9 Retention of urine, unspecified; K81.9 Cholecystitis, unspecified; I48.0 Paroxysmal atrial fibrillation; E78.5 Hyperlipidemia, unspecified; Z78.1 Physical restraint status; Z79.01 Long term (current) use of anticoagulants; Z79.84 Long term (current) use of oral hypoglycemic drugs; Z82.49 Family history of ischemic heart disease and other diseases of the circulatory system
CPT/HCPCS: 31500; 36415; 36600; 71045; 71275; 74018; 74174; 76604; 76705; 78452; 80048; 80053; 80061; 80076; 80202; 80305; 81003; 82040; 82375; 82805; 82962; 83036; 83605; 83735; 83880; 84100; 84145; 84443; 84478; 84484; 85025; 85027; 85732; 86705; 86709; 87340; 87420; 87426; 87804; 92950; 93005; 93017; 93306; 94002; 94003; 94070; 94618; 94640; 94664; 99291; A4606; A9500; J0456; J0692; J0696; J0706; J1650; J1815; J1940; J2060; J2270; J2405; J2470; J2704; J2785; J3370; J3480; J3490; J7030; J7060